=== PATIENT | female | born 1985 | race Caucasian/White ===

== ENCOUNTER 2017-07-27 14:46 | Emergency (ER) | payer OTHER ==
[~2017-07-27] VITALS: Ht 170.2 cm; Wt 77.1 kg
[2017-07-27] MEDS ORDERED: PRENATABS FA T1 EACH (15:12)
== END 2017-07-27 20:28 | disposition home or self-care (01) ==
LOC: ER 14:46
DX: O20.8 Other hemorrhage in early pregnancy (principal); Z34.82 Encounter for supervision of other normal pregnancy, second trimester